=== PATIENT | female | born 1940 | race Caucasian/White ===

== ENCOUNTER 2018-09-08 23:32 | Observation (INO) | payer MEDICARE, OTHER ==
[2018-09-09] MEDS ORDERED: DILTIAZEM HCL INJ 25 MG/5 ML VIAL IV ONE ×2 (00:44→01:21)
[2018-09-09] MEDS ORDERED: DILTIAZEM HCL/D5W 125 MG/125 ML RTUINJ IV PRN ×2 (00:44→01:36)
[2018-09-09] MEDS ORDERED: NORMAL SALINE 1000 ML 1,000 ML IV ONE (00:48)
--- NOTE | 2018-09-09 00:48 | ER Document Report ---
ED Cardiac - General Chief Complaint: Irregular Pulse Stated Complaint: REPORTS RAPID HEART RATE Time Seen by Provider: 09/09/18 00:29 Mode of Arrival: Ambulatory Information source: Patient TRAVEL OUTSIDE OF THE [place] IN LAST 30 DAYS: No - HPI Patient complains to provider of: Palpitations Was the onset of pain: Sudden Is the pain a: Chronic problem Quality of pain: None Associated symptoms: None Exacerbated by: Denies Relieved by: Nothing Similar symptoms previously: Yes Recently seen / treated by doctor: No - Related Data Allergies/Adverse Reactions: No Known Allergies Allergy (Verified 09/09/18 00:49) Past Medical History - General Information source: Patient - Social History Smoking Status: Never Smoker Family History: Reviewed & Not Pertinent Review of Systems - Review of Systems Constitutional: No symptoms reported EENT: No symptoms reported Cardiovascular: Palpitations, Heart racing Respiratory: No symptoms reported Gastrointestinal: No symptoms reported Genitourinary: No symptoms reported Female Genitourinary: No symptoms reported Musculoskeletal: No symptoms reported Skin: No symptoms reported Hematologic/Lymphatic: No symptoms reported Neurological/Psychological: No symptoms reported -: Yes All other systems reviewed and negative Physical Exam - Vital signs Vitals: Pulse 136 H 09/08/18 23:40 Interpretation: Normal - General General appearance: Appears well, Alert - HEENT Head: Normocephalic, Atraumatic Eyes: Normal Pupils: PERRL - Respiratory Respiratory status: No respiratory distress Chest status: Nontender Breath sounds: Normal Chest palpation: Normal - Cardiovascular Rhythm: Irregularly irregular, Tachycardia Heart sounds: Normal auscultation Murmur: No - Abdominal Inspection: Normal Distension: No distension Bowel sounds: Normal Tenderness: Nontender Organomegaly: No organomegaly - Back Back: Normal, Nontender - Extremities General upper extremity: Normal inspection, Nontender, Normal color, Normal ROM, Normal temperature General lower extremity: Normal inspection, Nontender, Normal color, Normal ROM, Normal temperature, Normal weight bearing. No: Jr's sign - Neurological Neuro grossly intact: Yes Cognition: Normal Orientation: AAOx4 [place] Coma Scale Eye Opening: Spontaneous [place] Coma Scale Verbal: Oriented [place] Coma Scale Motor: Obeys Commands Angelina Coma Scale Total: 15 Speech: Normal Motor strength normal: LUE, RUE, LLE, RLE Sensory: Normal - Psychological Associated symptoms: Normal affect, Normal mood - Skin Skin Temperature: Warm Skin Moisture: Dry Skin Color: Normal Course - Re-evaluation Re-evalutation: 09/09/18 03:45 On reevaluation, patient is doing much better. I discussed her lab results and the results of her chest x-ray. I also informed her about the admission. - Vital Signs Vital signs: Temp Pulse Resp BP Pulse Ox 98.7 F 86 16 131/65 H 94 09/09/18 01:21 09/08/18 23:41 09/09/18 02:51 09/09/18 02:51 09/09/18 02:51 - Laboratory Result Diagrams: 09/09/18 00:31 09/09/18 00:31 Laboratory results interpreted by me: 09/09/18 09/09/18 09/09/18 00:31 00:31 00:31 WBC 13.3 H Seg Neutrophils % 82.1 H Lymphocytes % 9.6 L Absolute Neutrophils 10.9 H PT 26.5 H APTT 36.4 H Glucose 158 H - Diagnostic Test Radiology reviewed: Reports reviewed Radiology results interpreted by me: 09/09/18 03:43 Chest x-ray is negative. - EKG Interpretation by Me Rate: Tachycardia Rhythm: A.Fib When compared to previous EKG there are: Previous EKG unavailable Additional EKG results interpreted by me: 09/09/18 03:43 EKG shows atrial fibrillation with rapid ventricular response. Nonspecific ST-T wave changes. No STEMI. - Transfer of Care Notes: 09/09/18 03:44 I consulted the hospitalist long filler cigar roller machine Dr. Johnson. He will admit patient to the hospital for further evaluation and management. Critical Care Note - Critical Care Note Total time excluding time spent on procedures (mins): 45 Discharge - Discharge Clinical Impression: Atrial fibrillation with rapid ventricular response Hypertension Qualifiers: Hypertension type: essential hypertension Qualified Code(s): I10 - Essential (primary) hypertension Condition: Stable Disposition: ADMITTED INPATIENT Admitting Provider: Elizabeth (Hospitalist) Unit Admitted: [facility]
[2018-09-09 01:02] LABS: INTERNATIONAL RATION (INR) 2.39; PARTIAL THROMBOPLASTIN TIME 36.4 SEC (23.5-35.8); PROTHROMBIN TIME 26.5 SEC (11.4-15.4)
[2018-09-09 01:05] LABS: ABSOLUTE BASOPHILS # (AUTO) 0.1 10^3/uL (0.0-0.2); ABSOLUTE LYMPHOCYTES (AUTO) 1.3 10^3/uL (0.5-4.7); ABSOLUTE NEUT (AUTO) 10.9 10^3/uL (1.7-8.2); BASOPHILS % (AUTO) 0.4 % (0-2); EOSINOPHILS % (AUTO) 0.3 % (0-6); HEMATOCRIT 44.3 % (36.0-47.0); HEMOGLOBIN 14.8 g/dL (12.0-15.5); LYMPHOCYTES % (AUTO) 9.6 % (13-45); MEAN CORPUSCULAR HEMOGLOBIN 32.6 pg (27.0-33.4); MEAN CORPUSCULAR HGB CONC 33.5 g/dL (32.0-36.0); MEAN CORPUSCULAR VOLUME 97 fl (80-97); MONOCYTES % (AUTO) 7.6 % (3-13); PLATELET COUNT 194 10^3/uL (150-450); RED BLOOD COUNT 4.55 10^6/uL (3.72-5.28); RED CELL DISTRIBUTION WIDTH 12.9 % (11.5-14.0); SEGMENTED NEUTROPHILS % (AUTO) 82.1 % (42-78); TOTAL CELLS COUNTED % (AUTO) 100 %; WHITE BLOOD COUNT 13.3 10^3/uL (4.0-10.5)
[2018-09-09 01:13] LABS: ALANINE AMINOTRANSFERASE 43 U/L (9-52); ALBUMIN 4.7 g/dL (3.5-5.0); ALKALINE PHOSPHATASE 82 U/L (38-126); ANION GAP 11 (5-19); ASPARTATE AMINO TRANSFERASE 31 U/L (14-36); BILIRUBIN,DIRECT 0.3 mg/dL (0.0-0.4); BILIRUBIN,TOTAL 0.5 mg/dL (0.2-1.3); BLOOD UREA NITROGEN 13 mg/dL (7-20); CALCIUM 9.5 mg/dL (8.4-10.2); CARBON DIOXIDE 25 mmol/L (22-30); CHLORIDE 104 mmol/L (98-107); CREATINE KINASE 73 U/L (30-135); GLUCOSE 158 mg/dL (75-110); POTASSIUM 3.6 mmol/L (3.6-5.0); SODIUM 140.2 mmol/L (137-145)
[2018-09-09 01:27] LABS: CREATINE KINASE MB 1.54 ng/mL (<4.55)
[2018-09-09 01:29] LABS: TROPONIN I < 0.012 ng/mL
--- NOTE | 2018-09-09 01:50 | RADIOLOGY REPORT (SQ) ---
EXAM DESCRIPTION: XR CHEST 1 VIEW COMPLETED DATE/TME: 09/09/2018 00:43 CLINICAL HISTORY: 77 years, Female, Palpitation COMPARISON: None. NUMBER OF VIEWS: 1 TECHNIQUE: Portable chest LIMITATIONS: None. FINDINGS: Heart size is normal. Median sternotomy wires. Lungs are clear. No pneumothorax IMPRESSION: No acute cardiopulmonary process copyright 2010 [employer]- All Rights Reserved
[2018-09-09] MEDS ORDERED: ONDANSETRON HCL INJ/PF 4 MG/2 ML SDV IV ONE (03:06)
[2018-09-09] MEDS ORDERED: ONDANSETRON HCL INJ/PF 4 MG/2 ML SDV IV PRN (03:58)
[2018-09-09] MEDS ORDERED: MAG HYDROX/AL HYDROX/SIMETH SUSP 30 ML UDCUP PO PRN (03:58)
[2018-09-09] MEDS ORDERED: MAGNESIUM HYDROXIDE SUSP 30 ML UDCUP PO PRN (03:58)
[2018-09-09] MEDS ORDERED: TEMAZEPAM 15 MG CAPSULE PO PRN (03:58)
--- NOTE | 2018-09-09 05:14 | PDOC H&P ---
History of Present Illness Admission Date/PCP: 09/09/2018 03:43 No local PCP Patient complains of: Palpitations History of Present Illness: JEY BOOTH is a 77 year old female who presented to the emergency room with an acute history of palpitations. She admits that she suddenly developed tingling in her legs and nausea followed shortly thereafter by chest palpitations a few minutes before coming to the emergency room on the evening of 09/08/2018. She senses her palpitations as an irregular pounding heartbeat in the center chest. She also admits associated moderate generalized weakness and accompanying mild dyspnea with her palpitations. She denies other associated or accompanying symptoms. She acknowledges numerous prior similar episodes associated with her paroxysmal atrial fibrillation. She has not identified any aggravating or ameliorating factors for her palpitations. In the emergency room she was found to have atrial fibrillation with rapid ventricular response which responded well to an intravenous bolus of diltiazem followed by an IV infusion. Patient will subsequently be admitted to the hospital for further evaluation and treatment. 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" Denies: Congestive Heart Failure, Coronary Artery Disease, Myocardial Infarction Pulmonary Medical History: Denies: Asthma, Chronic Obstructive Pulmonary Disease (COPD), Respiratory Failure, Sleep Apnea EENT Medical History: Denies: Cataracts, Ears - Hearing aids Neurological Medical History: Denies: Hemorrhagic CVA, Ischemic CVA, Migraine, Multiple Sclerosis, Seizures Endocrine Medical History: Reports: Hypothyroidism Denies: Diabetes Mellitus Type 1, Diabetes Mellitus Type 2, Hyperthyroidism, Obesity Renal/ Medical History: Denies: Chronic Kidney Disease, Nephrolithiasis Malignancy Medical History: Reports: None GI Medical History: Denies: Cirrhosis, Crohn's Disease, Gastroesophageal Reflux Disease, Hepatitis, Peptic Ulcer Disease, Ulcerative Colitis Musculoskeltal Medical History: Denies: Arthritis, Fibromyalgia, Gout Skin Medical History: Denies: Eczema, Psoriasis Psychiatric Medical History: Denies: Alcohol Dependency, Substance Abuse, Tobacco Dependency Traumatic Medical History: Reports: Other - Traumatic fall injury with left hip and left shoulder fracture/injuries Hematology: Denies: Anemia, Bleeding Tendencies Infectious Medical History: Reports: None Past Surgical History Past Surgical History: Reports: Cardiac Catheterization, Cholecystectomy, Hysterectomy, Orthopedic Surgery - Left hip trauma, left shoulder trauma, right hip replacement, Other - Cardiac surgery to repair "hole in heart", left breast biopsy Social History Information Source: Patient Lives with: Family Smoking Status: Never Smoker Frequency of Alcohol Use: Social - 1 to 2 glasses of wine daily Hx Recreational Drug Use: No Drugs: None Hx Prescription Drug Abuse: No - Advance Directive Resuscitation Status: Full Code Surrogate healthcare decision maker:: Aury Esquivel her daughter Family History Family History: COPD, Hypertension, Malignancy. denies: CAD, DM Parental Family History Reviewed: Yes Children Family History Reviewed: No Sibling(s) Family History Reviewed.: Yes Medication/Allergy Allergies/Adverse Reactions: No Known Allergies Allergy (Verified 09/09/18 00:49) Review of Systems Constitutional: PRESENT: as per HPI, weakness. ABSENT: chills, fever(s) Eyes: ABSENT: visual disturbances, other - Eye pain Ears: ABSENT: hearing changes, other - Ear pain Nose, Mouth, and Throat: ABSENT: mouth pain, sore throat Cardiovascular: PRESENT: as per HPI, palpitations. ABSENT: chest pain, dyspnea on exertion, edema, orthropnea Respiratory: PRESENT: as per HPI, dyspnea. ABSENT: cough Gastrointestinal: PRESENT: nausea. ABSENT: abdominal pain, constipation, diarrhea, vomiting Genitourinary: ABSENT: dysuria, hematuria Musculoskeletal: ABSENT: back pain, joint swelling, muscle weakness Integumentary: ABSENT: pruritus, rash Neurological: PRESENT: as per HPI, tingling, weakness. ABSENT: confusion, convulsions, focal weakness, memory loss, syncope Psychiatric: ABSENT: anxiety, depression Endocrine: ABSENT: cold intolerance, heat intolerance Hematologic/Lymphatic: ABSENT: easy bleeding, easy bruising Physical Exam Vital Signs: Temp Pulse Resp BP Pulse Ox 98.7 F 86 16 131/65 H 94 09/09/18 01:21 09/08/18 23:41 09/09/18 02:51 09/09/18 02:51 09/09/18 02:51 Intake & Output 09/07/18 09/08/18 09/09/18 23:59 23:59 23:59 Intake Total 1000 Balance 1000 Weight 61.6 kg General appearance: PRESENT: no acute distress, cooperative Head exam: PRESENT: atraumatic, normocephalic Eye exam: PRESENT: conjunctiva pink. ABSENT: conjunctival injection, scleral icterus Ear exam: PRESENT: normal external ear exam. ABSENT: bleeding, drainage Mouth exam: PRESENT: dry mucosa, neck supple Neck exam: ABSENT: JVD, thyromegaly, tracheal deviation Respiratory exam: PRESENT: clear to auscultation eric, symmetrical, unlabored Cardiovascular exam: PRESENT: irregular rhythm - Irregularly irregular rate and rhythm. ABSENT: clicks, gallop, rubs Pulses: PRESENT: normal radial pulses, normal dorsalis pedis pul Vascular exam: PRESENT: normal capillary refill. ABSENT: pallor GI/Abdominal exam: PRESENT: normal bowel sounds, soft Rectal exam: PRESENT: deferred Extremities exam: ABSENT: joint swelling, pedal edema Musculoskeletal exam: PRESENT: full ROM, normal inspection Neurological exam: PRESENT: alert, oriented to person, oriented to place, oriented to time, oriented to situation, CN II-XII grossly intact. ABSENT: motor sensory deficit Psychiatric exam: PRESENT: appropriate affect, normal mood Skin exam: PRESENT: dry, intact, warm. ABSENT: jaundice, rash, urticaria Results Laboratory Results: 09/09/18 00:31 09/09/18 00:31 09/09/18 09/09/18 09/09/18 00:31 00:31 00:31 WBC 13.3 H RBC 4.55 Hgb 14.8 Hct 44.3 MCV 97 MCH 32.6 MCHC 33.5 RDW 12.9 Plt Count 194 Seg Neutrophils % 82.1 H Lymphocytes % 9.6 L Monocytes % 7.6 Eosinophils % 0.3 Basophils % 0.4 Absolute Neutrophils 10.9 H Absolute Lymphocytes 1.3 Absolute Monocytes 1.0 Absolute Eosinophils 0.0 Absolute Basophils 0.1 Sodium 140.2 Potassium 3.6 Chloride 104 Carbon Dioxide 25 Anion Gap 11 BUN 13 Creatinine 0.83 Est GFR ( Amer) > 60 Est GFR (Non-Af Amer) > 60 Glucose 158 H Calcium 9.5 Total Bilirubin 0.5 AST 31 ALT 43 Alkaline Phosphatase 82 Total Protein 8.0 Albumin 4.7 TSH 2.46 09/09/18 09/09/18 00:31 00:31 Creatine Kinase 73 CK-MB (CK-2) 1.54 Troponin I < 0.012 Impressions: Chest X-Ray 09/09/18 00:43 IMPRESSION: No acute cardiopulmonary process copyright 2010 [id number]- All Rights Reserved Assessment and Plan - Diagnosis (1) Atrial fibrillation with rapid ventricular response Is this a current diagnosis for this admission?: Yes Plan: Patient's atrial fibrillation is well controlled on a diltiazem infusion. This will be converted to oral diltiazem in preparation for her discharge. Serial c ardiac enzymes and EKGs will be performed. Patient use morphine sulfate 2 to 4 mg IV every 2 hours on a as needed basis for any pain she may have on a sliding scale. A thyroid profile and a repeat CBC and metabolic profile will be obtained as well as a lipid profile in the evaluation of the patient's atrial fibrillation. (2) Generalized weakness Is this a current diagnosis for this admission?: Yes Plan: Patient will be observed for improvement in her generalized weakness symptoms as well as her tingling in her legs and nausea. Most of the symptoms have resolved at least in part at this time. (3) Chronic anticoagulation Is this a current diagnosis for this admission?: Yes Plan: Patient will be continued on her chronic anticoagulation. (4) Hypertension Qualifiers: Hypertension type: essential hypertension Qualified Code(s): I10 - Essential (primary) hypertension Is this a current diagnosis for this admission?: Yes Plan: Patient be continued on her usual antihypertensive regiment. Her blood pressure will be observed closely throughout her hospital course. - Time Time Spent with patient: 35 or more minutes Medications reviewed and adjusted accordingly: Yes Anticipated discharge: Home - Inpatient Certification Based on my medical assessment, after consideration of the patient's comorbidities, presenting symptoms, or acuity I expect that the services needed warrant INPATIENT care.: Yes I certify that my determination is in accordance with my understanding of Medicare's requirements for reasonable and necessary INPATIENT services [42 CFR 412.3e].: Yes Medical Necessity: Need Close Monitoring Due to Risk of Patient Decompensation, Need For Continuous Telemetry Monitoring, Risk of Complication if Not Cared For in Hospital
--- NOTE | 2018-09-09 05:16 | ADVANCED CARE ---
- Diagnosis (1) Atrial fibrillation with rapid ventricular response Diagnosis Current: Yes (2) Generalized weakness Diagnosis Current: Yes (3) Chronic anticoagulation Diagnosis Current: Yes (4) Hypertension Diagnosis Current: Yes Attendance: The patient and myself. Resuscitation Status: Full Code Discussion: After brief discussion the patient has determined that she wishes to remain a full code for the remainder of this hospitalization. Additionally she has named Aury Esquivel as her designated surrogate medical decision-maker. Care Planning Goals: 1. Patient will be full CODE STATUS for the remainder of this hospitalization. 2. Aury Esquivel is her designated surrogate medical decision-maker. Document(s) Completed: Following information will be entered in the patient's permanent medical record, current medical record and current orders via EMR entry: 1. Patient will be full CODE STATUS for the remainder of this hospitalization. 2. Aury Esquivel is her designated surrogate medical decision-maker. Time Spent: 15 minutes
[2018-09-09] MEDS ORDERED: DILTIAZEM HCL 60 MG TABLET PO ONE (05:21)
[2018-09-09] MEDS ORDERED: RINGERS SOLUTION,LACTATED 1,000 ML IV PRN (05:24)
[2018-09-09 05:51] LABS: HEMATOCRIT 38.5 % (36.0-47.0); MEAN CORPUSCULAR HEMOGLOBIN 33.1 pg (27.0-33.4); MEAN CORPUSCULAR HGB CONC 33.9 g/dL (32.0-36.0); MEAN CORPUSCULAR VOLUME 98 fl (80-97); PLATELET COUNT 175 10^3/uL (150-450); RED BLOOD COUNT 3.93 10^6/uL (3.72-5.28); RED CELL DISTRIBUTION WIDTH 12.9 % (11.5-14.0); WHITE BLOOD COUNT 8.6 10^3/uL (4.0-10.5)
[2018-09-09 06:16] LABS: FREE T3 3.36 pg/mL (2.77-5.27); FREE T4 (FREE THYROXINE) 1.69 ng/dL (0.78-2.19)
[2018-09-09] MEDS ORDERED: DILTIAZEM HCL 120 MG CAP.SR.24H PO SCH (10:00)
[2018-09-09] MEDS ORDERED: FAMOTIDINE 20 MG TABLET PO SCH (10:00)
[2018-09-09] MEDS ORDERED: DOCUSATE SODIUM 100 MG CAPSULE PO SCH (10:00)
[2018-09-09 10:49] LABS: CREATINE KINASE MB 0.97 ng/mL (<4.55)
[2018-09-09 10:51] LABS: TROPONIN I < 0.012 ng/mL
[2018-09-09] MEDS ORDERED: DILTIAZEM HCL 180 MG CAPSULE.CR PO ONE (13:51)
--- NOTE | 2018-09-09 13:59 | PDOC DISCHARGE SUMMARY ---
General - Admit/Disc Date/PCP Admission Date/Primary Care Provider: 09/09/18 03:51 Discharge Date: 09/09/18 - Discharge Diagnosis (1) Atrial fibrillation with rapid ventricular response Is this a current diagnosis for this admission?: Yes (2) Chronic anticoagulation Is this a current diagnosis for this admission?: Yes (3) Generalized weakness Is this a current diagnosis for this admission?: Yes (4) Hypertension Is this a current diagnosis for this admission?: Yes (5) Hypothyroidism Is this a current diagnosis for this admission?: Yes - Additional Information Resuscitation Status: Full Code Home Medications: Diltiazem HCl [Cardizem Cd 120 mg Capsule] 120 mg PO DAILY 09/09/18 Estradiol [Estrace] 0.5 mg PO DAILY 09/09/18 Levothyroxine Sodium [Synthroid 0.075 mg Tablet] 0.075 mg PO Q6AM 09/09/18 Rivaroxaban [Xarelto] 20 mg PO DAILY 09/09/18 History of Present Illness History of Present Illness: JEY BOOTH is a 77 year old female who presented to the emergency room with an acute history of palpitations. She admits that she suddenly developed tingling in her legs and nausea followed shortly thereafter by chest palpitations a few minutes before coming to the emergency room on the evening of 09/08/2018. She senses her palpitations as an irregular pounding heartbeat in the center chest. She also admits associated moderate generalized weakness and accompanying mild dyspnea with her palpitations. She denies other associated or accompanying symptoms. She acknowledges numerous prior similar episodes as sociated with her paroxysmal atrial fibrillation. She has not identified any aggravating or ameliorating factors for her palpitations. In the emergency room she was found to have atrial fibrillation with rapid ventricular response which responded well to an intravenous bolus of diltiazem followed by an IV infusion. Patient will subsequently be admitted to the hospital for further evaluation and treatment. Hospital Course Hospital Course: This is 77 years old female patient from [place], past medical history of chronic atrial fibrillation, hypertension and hypothyroidism came to [place], presented with chief complaint of palpitations. Patient has been started on Cardizem drip and later switched t o p.o. Cardizem as heart rate controlled. I seen patient sitting up in bed and enjoying her lunch. Her heart rate ranges between 80 and 90. Her other vital signs are within normal limits and patient stable enough to be discharged today patient advised that to take her home medications and visit her primary lead front desk agent in [place]. Physical Exam Vital Signs: Temp Pulse Resp BP Pulse Ox 98.7 F 86 16 139/79 H 96 09/09/18 01:21 09/08/18 23:41 09/09/18 13:00 09/09/18 13:00 09/09/18 13:00 Intake & Output 09/08/18 09/09/18 09/10/18 06:59 06:59 06:59 Intake Total 1024 1000 Balance 1024 1000 Weight 61.6 kg General appearance: PRESENT: no acute distress Head exam: PRESENT: atraumatic Neck exam: ABSENT: carotid bruit, JVD, lymphadenopathy, thyromegaly Respiratory exam: PRESENT: clear to auscultation eric. ABSENT: rales, rhonchi, wheezes Cardiovascular exam: PRESENT: irregular rhythm Neurological exam: PRESENT: alert, awake, oriented to person, oriented to place, oriented to time, oriented to situation Results Laboratory Results: 09/09/18 05:39 09/09/18 00:31 09/09/18 09/09/18 09/09/18 00:31 00:31 00:31 WBC 13.3 H RBC 4.55 Hgb 14.8 Hct 44.3 MCV 97 MCH 32.6 MCHC 33.5 RDW 12.9 Plt Count 194 Seg Neutrophils % 82.1 H Lymphocytes % 9.6 L Monocytes % 7.6 Eosinophils % 0.3 Basophils % 0.4 Absolute Neutrophils 10.9 H Absolute Lymphocytes 1.3 Absolute Monocytes 1.0 Absolute Eosinophils 0.0 Absolute Basophils 0.1 Sodium 140.2 Potassium 3.6 Chloride 104 Carbon Dioxide 25 Anion Gap 11 BUN 13 Creatinine 0.83 Est GFR ( Amer) > 60 Est GFR (Non-Af Amer) > 60 Glucose 158 H Calcium 9.5 Total Bilirubin 0.5 AST 31 ALT 43 Alkaline Phosphatase 82 Total Protein 8.0 Albumin 4.7 TSH 2.46 Free T4 Free T3 pg/mL 09/09/18 09/09/18 00:31 05:39 WBC 8.6 RBC 3.93 Hgb 13.0 Hct 38.5 MCV 98 H MCH 33.1 MCHC 33.9 RDW 12.9 Plt Count 175 Seg Neutrophils % Lymphocytes % Monocytes % Eosinophils % Basophils % Absolute Neutrophils Absolute Lymphocytes Absolute Monocytes Absolute Eosinophils Absolute Basophils Sodium Potassium Chloride Carbon Dioxide Anion Gap BUN Creatinine Est GFR ( Amer) Est GFR (Non-Af Amer) Glucose Calcium Total Bilirubin AST ALT Alkaline Phosphatase Total Protein Albumin TSH Free T4 1.69 Free T3 pg/mL 3.36 09/09/18 09/09/18 09/09/18 00:31 00:31 04:02 Creatine Kinase 73 CK-MB (CK-2) 1.54 Troponin I < 0.012 < 0.012 09/09/18 09/09/18 09/09/18 04:02 04:02 10:13 Creatine Kinase 63 54 CK-MB (CK-2) 1.33 Troponin I Cancelled 09/09/18 10:13 Creatine Kinase CK-MB (CK-2) 0.97 Troponin I < 0.012 Impressions: Chest X-Ray 09/09/18 00:43 IMPRESSION: No acute cardiopulmonary process copyright 2011 [employer]- All Rights Reserved Qualifiers - * PATIENT BEING DISCHARGED WITH ANY OF THE FOLLOWING DIAGNOSIS: No Acute Heart Failure - Is this a Heart Failure Patient?: No LVEF < 40%?: No- if no continue to question #3 3. Anticoagulant therapy for permanect/persistent/paraoxysmal Afib or Aflutter: N/A
[2018-09-09] MEDS ORDERED: DILTIAZEM HCL 120 MG CAP.SR.24H PO ONE (14:18)
[2018-09-09 14:38] VITALS: BP 146/80
--- NOTE | 2018-09-09 19:05 | EKG REPORT ---
SEVERITY:- ABNORMAL ECG - ATRIAL FIBRILLATION BORDERLINE T ABNORMALITIES, INFERIOR LEADS : Confirmed by: Alida Fulton MD 09-Sep-2018 19:05:00
--- NOTE | 2018-09-09 19:05 | EKG REPORT ---
SEVERITY:- ABNORMAL ECG - ATRIAL FIBRILLATION BORDERLINE REPOL ABNORMALITY, DIFFUSE LEADS : Confirmed by: Alida Fulton MD 09-Sep-2018 19:05:22
--- NOTE | 2018-09-09 19:05 | EKG REPORT ---
SEVERITY:- ABNORMAL ECG - ATRIAL FIBRILLATION, V-RATE 74-165 BORDERLINE RIGHT AXIS DEVIATION CONSIDER LEFT VENTRICULAR HYPERTROPHY REPOLARIZATION ABNORMALITY, PROB RATE RELATED : Confirmed by: Alida Fulton MD 09-Sep-2018 19:05:28
== END 2018-09-09 14:37 | disposition home or self-care (01) ==
LOC: ER 23:32 → INTOOBSV 09-09 03:51 → EH 09-09 03:51
PROVIDERS: ADMIT Emergency Medicine; ATTEND Emergency Medicine
DX: I48.2 Chronic atrial fibrillation (principal); Z79.01 Long term (current) use of anticoagulants; R53.1 Weakness; I10 Essential (primary) hypertension; E03.9 Hypothyroidism, unspecified; R20.2 Paresthesia of skin; R11.0 Nausea; Z79.899 Other long term (current) drug therapy; Z86.79 Personal history of other diseases of the circulatory system; Z90.49 Acquired absence of other specified parts of digestive tract; Z82.49 Family history of ischemic heart disease and other diseases of the circulatory system
CPT/HCPCS: 93005 ×3; 96376; 99291; 96361; 96375; 96365; 96366; 36415; 84439; 82553; 82550; 84443; 85025; 85610; 85730; 80053; 84484; 84481; 71045; 93010 ×2; G0378; A9270 ×4; J3490 ×2; J2405; J7030; J7120